=== PATIENT | male | born 1950 | race Caucasian/White ===

== ENCOUNTER 2019-08-01 10:40 | Day surgery (SDC) | payer OTHER ==
[2019-08-01 11:16] LABS: Absolute Lymphocytes (CBC) 1.6 K/uL (0.7-4.9); Basophils % 0.5 % (0-1.3); Lymphocytes % 27.6 % (15.3-44.8); MPV 8.3 fL (7.6-11.3); RBC Red Blood Cell Count 4.96 M/uL (4.33-5.43)
--- NOTE | 2019-08-01 11:35 | EKG ---
Test Date: 2019-08-01 Test Time: 11:03:14 [facility]: [facility] MEASUREMENT RESULTS: Intervals: Rate: 59 OR: 146 QRSD: 86 QT: 418 QTc: 413 Clifford: P: 15 OR: 146 QRS: 41 T: 59 INTERPRETIVE STATEMENTS: Sinus bradycardia with occasional premature ventricular complexes Otherwise normal ECG Compared to ECG 11/09/1991 13:55:00 Ventricular premature complex(es) now present Sinus rhythm no longer present Electronically Signed On 08-01-19 11:34:35 CDT by Ignacio Kasper
--- NOTE | 2019-08-01 11:36 | RAD REPORT ---
EXAM DESCRIPTION: RAD - Chest Pa And Lat (2 Views) - 08/01/2019 11:31 am CLINICAL HISTORY: PRE OP FOR SURGERY Chest pain. COMPARISON: CHEST PA AND LAT 2 VIEW dated 05/17/2015 FINDINGS: The lungs are clear. The heart is normal in size. No displaced fractures. IMPRESSION: No acute or concerning finding suspected.
[2019-08-01 11:37] LABS: Potassium 3.9 mmol/L (3.5-5.1)
[2019-08-01] MEDS ORDERED: CEFAZOLIN/SWI 1gm 1 GM/10 ML SYR ONE (11:37)
[2019-08-01] MEDS ORDERED: Ringers Lactate 1,000 ML IV ONE (11:37)
[2019-08-01] MEDS ORDERED: FENTANYL CITR 100 MCG/2 ML ONE (11:45)
[2019-08-01] MEDS ORDERED: MIDAZOLAM HCL 2 MG/2 ML INJ ONE (11:46)
[2019-08-01] MEDS ORDERED: propofoL 200 MG/20 ML VIAL IV ONE (11:46)
[2019-08-01] MEDS ORDERED: LIDOCAINE 2% MPF 5 ML VIAL ONE (11:46)
[2019-08-01] MEDS ORDERED: dexAMETHasone 4 MG/ML VIAL ONE (11:46)
[2019-08-01] MEDS ORDERED: KETOROLAC 30 MG/ML INJ ONE (11:46)
[2019-08-01] MEDS ORDERED: ONDANSETRON 4 MG/2 ML VIAL ONE (11:46)
--- NOTE | 2019-08-01 12:15 | P.BOP ---
Preoperative diagnosis: infected back subcutaneous mass with abscess Postoperative diagnosis: same Primary procedure: Excisional biopsy of infected back subcutaneous mass with abscess 5x5cm Estimated blood loss: <10cc Specimen: mass Findings: mass amd culture Anesthesia: General Complications: None Drain(s): Other Condition: Good
[2019-08-01] MEDS ORDERED: CODEINE 30MG/APAP 300MG TAB ONE (14:13)
[2019-08-01 15:34] VITALS: BP 140/69; TEMP 96.9; O2SAT 99
--- NOTE | 2019-08-06 21:17 | DS ---
Date of Discharge: 08/01/2019 Diagnosis: Infected back subcutaneous mass with abscess. Procedure: Excisional biopsy of infected back subcutaneous mass with abscess. Disposition: Home. Activity: As tolerated, no heavy lifting. Followup: Followup in my office in 1 week. Call for appointment on [phone]. Keep area clean. Wet -to-dry dressing daily. Medications: See orders. LJ/GOMEZ Voice ID: [id number] Report ID: [id number]
--- NOTE | 2019-08-07 08:48 | OP ---
Date of Procedure: 08/06/2019 Surgeon: Bridger Mar MD Preoperative Diagnosis: Infected back subcutaneous mass with abscess. Postoperative Diagnosis: Infected back subcutaneous mass with abscess. Procedure: Excisional biopsy of infected back subcutaneous mass with abscess 5 x 5 cm. Estimated Blood Loss: Less than 10 mL. Specimen: Mass. Finding: Mass and culture of the pus. Anesthesia: General plus local. Indications: This is the case of a male, who comes to us with above diagnosis. Fully explained the benefits, alternatives, and risks of excisional biopsy, infected subcutaneous mass with drainage of a n abscess which include, but not limited to infection, bleeding, damage to adjacent structures, anest hesia complication, nonhealing wound, CO, and even . He also understands this may not relieve s ymptoms. He might need more than one surgical intervention. He understand he also will require woun d care. The area of concern was marked by me and the patient in the holding room. Description Of Procedure: Patient was brought to the operating room, placed in supine position. Ane sthesia was done without complication. The patient was placed in lateral decubitus position with pro per protection. The back area was prepped and draped in sterile fashion. A time-out was called. Lo quintin anesthetic was applied followed by sharp incision of the skin, which is necrotic and ulcerated on top of this area which is coming from the mass that patient has in the subcutaneous tissue. The mas s and the abscess were seen removed, drained. Hemostasis obtained. The area was cultured and the ar ea was packed with wet-to-dry dressing. Patient tolerated the procedure well. Patient was sent to recovery in stable condition. LJ/GOMEZ Voice ID: [id number] Report ID: [id number]
== END 2019-08-01 14:45 | disposition home or self-care (01) ==
LOC: OR 10:40
PROVIDERS: ATTEND Surgery
PROC: 0JB70ZZ Excision of Back Subcutaneous Tissue and Fascia, Open Approach (ICD-10-PCS; principal; 2019-08-01 14:00)
DX: L72.0 Epidermal cyst (principal); L02.212 Cutaneous abscess of back [any part, except buttock and flank]
CPT/HCPCS: 93005; 87070; 85025; 80048; 36415; 87205; 88304; 87075; 71046; 11406; J2704; J2250; J3010; J0690; J7120; J2405